=== PATIENT | female | born 1990 | race Caucasian/White ===

== ENCOUNTER 2017-06-15 04:04 | Emergency (ER) | payer OTHER ==
[~2017-06-15] VITALS: Ht 170.2 cm; Wt 68.0 kg
--- NOTE | 2017-06-15 04:04 | NUR ---
BB SELF; LOWER ABD PAIN, 7/10 WITH NAUSEA, VOMIT, DIARRHEA SINCE YESTERDAY. NO SOB VSS NAD A/OX4 WALKING. WILL CONTINUE TO MONITOR FOR ANY CHANGES DURING THE SHIFT
--- NOTE | 2017-06-15 04:10 | NUR ---
BLOOD/URINE SENT TO LAB
[2017-06-15] MEDS ORDERED: MORPHINE SULFATE INJ 4 MG/ML DISP.SYRIN ONE (04:27)
[2017-06-15] MEDS ORDERED: ONDANSETRON HCL/PF 4 MG/2 ML VIAL ONE (04:27)
[2017-06-15] MEDS ORDERED: IV NS 0.9% 1,000 ML BAG IV ONE (04:30)
[2017-06-15] MEDS ORDERED: MORPHINE SULFATE INJ 2 MG/ML DISP.SYRIN IV ONE (04:30)
[2017-06-15] MEDS ORDERED: ONDANSETRON HCL/PF 4 MG/2 ML VIAL IVP ONE (04:30)
[2017-06-15 04:44] LABS: EOSINOPHILS % (AUTO) 0.2 % (0.0-6.0); HEMATOCRIT 39 % (33-45); HEMOGLOBIN 13.6 g/dL (11.5-14.8); MEAN CORPUSCULAR HGB CONC 35 g/dl (31.0-36.0); MEAN CORPUSCULAR VOLUME 94 fL (82-100); MONOCYTES # (AUTO) 0.8 /CMM (0.1-1.30); MONOCYTES % (AUTO) 7.4 % (2.0-12.0); NEUTROPHILS # (AUTO) 8.9 /CMM (1.8-8.9); NEUTROPHILS % (AUTO) 83.4 % (43.0-81.0); PLATELET COUNT (AUTO) 365 /CMM (150-450); RDW COEFFICIENT OF VARIATION 12.4 (11.5-15.0); RED BLOOD CELL COUNT(AUTO) 4.16 MIL/uL (4.0-5.2); WHITE BLOOD COUNT (AUTO) 10.7 K/uL (4.3-11.0)
[2017-06-15 04:44] LABS: APPEARANCE,URINE CLEAR (CLEAR); BILIRUBIN,URINE NEGATIVE (NEGATIVE); BLOOD, URINE 3+ Ery/uL (NEGATIVE); COLOR,URINE YELLOW (YELLOW); KETONES,URINE TRACE (NEGATIVE); LEUKOCYTE ESTERASE ,URINE TRACE (NEGATIVE); NITRITE, URINE NEGATIVE (NEGATIVE); PROTEIN,URINE NEGATIVE (NEGATIVE); UGLUCOSE NEGATIVE (NEGATIVE); UROBILINOGEN,URINE 0.2 EU/dL (0.2)
[2017-06-15 04:55] LABS: BACTERIA,URINE Many /HPF (None Seen)
[2017-06-15 04:56] LABS: SQUAMOUS EPITHELIAL CELL,UR Many /HPF (None Seen)
[2017-06-15 04:56] LABS: CALCIUM, SERUM 8.9 mg/dL (8.5-10.1); CREATININE 0.7 mg/dL (0.6-1.3); POTASSIUM 3.8 mmol/L (3.5-5.1)
[2017-06-15 05:00] LABS: INR 0.97 (0.87-1.13)
[2017-06-15 05:01] LABS: ALBUMIN 3.9 g/dL (3.4-5.0); BILIRUBIN,DIRECT 0.1 mg/dL (0.0-0.2); BILIRUBIN,TOTAL 0.4 mg/dL (0.2-1.0); TOTAL PROTEIN, SERUM 7.6 g/dL (6.4-8.2)
--- NOTE | 2017-06-15 05:05 | NUR ---
PT OFF TO CT
--- NOTE | 2017-06-15 05:20 | NUR ---
PT BACK FROM CT
--- NOTE | 2017-06-15 05:30 | NUR ---
Lamberto diaz in [facility] - 06/15/17 at 0544 by JORGE L CALLED J[facility] FOR DR. LEWIS.
--- NOTE | 2017-06-15 05:43 | NUR ---
Lamberto diaz in [facility] - 06/15/17 at 0544 by JORGE L PAGED DR. LEWIS AGAIN THROUGH ANSWERING SERVICE.
[2017-06-15 06:05] VITALS: BP 110/51
== END 2017-06-15 06:06 | disposition home or self-care (01) ==
LOC: ER 04:04
DX: K52.9 Noninfective gastroenteritis and colitis, unspecified (principal); Z88.0 Allergy status to penicillin
CPT/HCPCS: 36415; 80048-TC; 80076-TC; 81000-TC; 83690-TC; 84703-TC; 85025-TC; 85730-TC; 87086-TC; A4606; J2270; J2405; J7030; Z7610